=== PATIENT | female | born 1980 | race Caucasian/White ===

== ENCOUNTER 2017-11-12 08:25 | Inpatient (IN) | payer OTHER, MEDICAID ==
[2017-11-12] MEDS ORDERED: LIDOCAINE 1% (MPF) 30 ML INJ INJ (08:30)
[2017-11-12] MEDS ORDERED: CARBOPROST 250 MCG INJ IM ×2 (08:30→09:30)
[2017-11-12] MEDS ORDERED: BUTORPHANOL 2 MG INJ IV (08:30)
[2017-11-12] MEDS ORDERED: MISOPROSTOL 200 MCG TAB PR ×2 (08:30→09:30)
[2017-11-12] MEDS ORDERED: METHYLERGONOVINE 0.2 MG INJ IM ×2 (08:30→09:30)
[2017-11-12] MEDS ORDERED: OXYTOCIN 30 UNITS/LR 500 ML IV ×2 (08:30→09:30)
[2017-11-12] MEDS: OXYTOCIN 30 UNITS/LR 500 ML IV ×3 (08:38→13:18)
[2017-11-12] MEDS: LACTATED RINGER'S 1,000 ML IV (08:39)
[2017-11-12] MEDS: LACTATED RINGER'S 1,000 ML IV* (09:09)
[2017-11-12 09:13] LABS: ADD MAN DIFF? NO
[2017-11-12 09:18] LABS: WHITE BLOOD COUNT 16.9 10^3/ul (4.8-10.8)
[2017-11-12 09:18] LABS: BASOPHILS % 0.2 % (0.0-2.0); EOSINOPHILS # 0.1 10^3/ul (0.0-0.5); EOSINOPHILS % 0.6 % (0.0-7.0); HEMATOCRIT 37.6 % (37.0-47.0); HEMOGLOBIN 12.2 g/dl (12.0-16.0); LYMPHOCYTES # 2.2 10^3/ul (0.8-2.9); LYMPHOCYTES % 12.9 % (15.0-51.0); MEAN CORPUSCULAR HEMOGLOBIN 26.8 pg (29.0-33.0); MEAN CORPUSCULAR HGB CONC 32.4 g/dl (32.0-37.0); MEAN CORPUSCULAR VOLUME 82.5 fl (82.0-101.0); MEAN PLATELET VOLUME 11.5 fl (7.4-10.4); MONOCYTE # 0.5 10^3/ul (0.3-0.9); MONOCYTES % 3.1 % (0.0-11.0); NEUTROPHIL # 13.9 10^3/ul (1.6-7.5); NEUTROPHILS % 82.4 % (39.0-77.0); PLATELET COUNT 322 10^3/UL (140-415); RED BLOOD COUNT 4.56 10^6/ul (4.20-5.40); RED CELL DISTRIBUTION WIDTH 15.7 % (11.5-14.5)
[2017-11-12] MEDS ORDERED: LANOLIN 7 GM TUBE TOP (09:30)
[2017-11-12] MEDS ORDERED: DIBUCAINE 1% 30 GM OINT TOP (09:30)
[2017-11-12] MEDS ORDERED: BENZOCAINE 20% 56 ML SPRAY TOP (09:30)
[2017-11-12] MEDS ORDERED: WITCH HAZEL/GLYCERIN PAD PR (09:30)
[2017-11-12] MEDS: LABETALOL HCL 20MG INJ IV ×2 (09:34→10:30)
[2017-11-12 09:46] LABS: URIC ACID 5.5 mg/dl (3.1-7.9)
[2017-11-12 09:47] LABS: INR 0.86; PROTIME 11.8 Sec (11.9-14.9); PT RATIO 0.9
[2017-11-12 09:48] LABS: ADD UMIC YES; PARTIAL THROMBOPLASTIN TIME 29.2 Sec (25.0-35.0); UR ASCORBIC ACID NEGATIVE (NEGATIVE); UR BILIRUBIN (Dip) NEGATIVE (NEGATIVE); UR BLOOD (Dip) NEGATIVE (NEGATIVE); UR CLARITY CLEAR (CLEAR); UR COLOR AMBER (YELLOW); UR GLUCOSE (Dip) NEGATIVE (NEGATIVE); UR KETONES (Dip) TRACE mg/dL (NEGATIVE); UR LEUKOCYTE ESTERASE (Dip) NEGATIVE Leu/ul (NEGATIVE); UR NITRITE (Dip) NEGATIVE (NEGATIVE); UR RBC 0 /HPF (0-5); UR SPECIFIC GRAVITY (Dip) 1.019 (1.003-1.030); UR TOTAL PROTEIN (Dip) 1+ mg/dl (NEGATIVE); UR UROBILINOGEN (Dip) 1+ mg/dL (NEGATIVE); UR WBC 0 /HPF (0-5)
[2017-11-12 10:05] LABS: BARBITURATES Negative (NEGATIVE); CANNABINOIDS Negative (NEGATIVE)
[2017-11-12 10:15] LABS: BENZODIAZEPINES Negative (NEGATIVE); COCAINE Negative (NEGATIVE); OPIATES Negative (NEGATIVE)
[2017-11-12 10:19] LABS: AMPHETAMINE/METHAMPHETAMINE Positive (NEGATIVE)
[2017-11-12 11:46] LABS: ALANINE AMINOTRANSFERASE 30 IU/L (13-69); ALKALINE PHOSPHATASE 320 IU/L (42-121); ANION GAP 20 (8-16); ASPARTATE AMINO TRANSFERASE 40 IU/L (15-46); BLOOD UREA NITROGEN 7 mg/dl (7-20); CALCIUM 9.7 mg/dl (8.4-10.2); CARBON DIOXIDE 20 mmol/L (21-31); CHLORIDE 102 mmol/L (97-110); CREATININE 0.72 mg/dl (0.44-1.00); GLUCOSE 113 mg/dl (70-220); SODIUM 138 mmol/L (135-144)
[2017-11-12 11:47] LABS: ALBUMIN/GLOBULIN RATIO 0.83; BILIRUBIN,INDIRECT 0.3 mg/dl (0-1.1); BILIRUBIN,TOTAL 0.3 mg/dl (0.2-1.3); TOTAL PROTEIN 8.8 g/dl (6.1-8.1)
[2017-11-12] MEDS: AMPICILLIN 2 GM/NS (PMX) 100 ML IV (12:00)
[2017-11-12] MEDS: AMPICILLIN 1 GM/NS (PMX) 50 ML IV (12:30)
[2017-11-12 12:34] LABS: HEPATITIS B SURFACE ANTIGEN NEGATIVE (NEGATIVE)
[2017-11-12] MEDS: HYDROCODONE/APAP (5/325) TAB PO ×2 (13:15→19:57)
[2017-11-12 14:12] LABS: HIV 1&2 ANTIBODY NEGATIVE (NEGATIVE)
[2017-11-12 22:37] LABS: RAPID PLASMA REAGIN NONREACTIVE (NR)
[2017-11-13] MEDS: HYDROCODONE/APAP (5/325) TAB PO ×4 (06:50→23:13)
[2017-11-13 08:18] LABS: ADD MAN DIFF? NO
[2017-11-13 08:22] LABS: BASOPHILS % 0.3 % (0.0-2.0); EOSINOPHILS # 0.3 10^3/ul (0.0-0.5); EOSINOPHILS % 2.1 % (0.0-7.0); HEMATOCRIT 33.3 % (37.0-47.0); HEMOGLOBIN 10.5 g/dl (12.0-16.0); LYMPHOCYTES # 2.7 10^3/ul (0.8-2.9); LYMPHOCYTES % 20.8 % (15.0-51.0); MEAN CORPUSCULAR HEMOGLOBIN 26.3 pg (29.0-33.0); MEAN CORPUSCULAR HGB CONC 31.5 g/dl (32.0-37.0); MEAN CORPUSCULAR VOLUME 83.3 fl (82.0-101.0); MEAN PLATELET VOLUME 11.3 fl (7.4-10.4); MONOCYTE # 0.5 10^3/ul (0.3-0.9); NEUTROPHIL # 9.4 10^3/ul (1.6-7.5); NEUTROPHILS % 71.7 % (39.0-77.0); PLATELET COUNT 296 10^3/UL (140-415); RED CELL DISTRIBUTION WIDTH 15.7 % (11.5-14.5)
[2017-11-13 08:22] LABS: WHITE BLOOD COUNT 13.1 10^3/ul (4.8-10.8)
[2017-11-14] MEDS: HYDROCODONE/APAP (5/325) TAB PO ×3 (04:55→21:07)
[2017-11-14] MEDS: DIPHTH/TET/ACEL PERTUSS (ADULT) 0.5 ML VIAL IM* (09:00)
[2017-11-14] MEDS: VARICELLA VACCINE LIVE/PF 1,350 UNIT/0.5 ML ML SC* (09:00)
[2017-11-14] MEDS ORDERED: MEASLES,MUMPS,RUBELLA VACCINE INJ SC* (09:00)
[2017-11-14] MEDS: OXYCODONE/ACETAMINOPHEN (5/325) TAB PO (10:45)
[2017-11-14] MEDS: LABETALOL 100 MG TAB PO ×3 (14:11→21:00)
[2017-11-15] MEDS: HYDROCODONE/APAP (5/325) TAB PO ×2 (05:34→10:55)
[2017-11-15] MEDS: LABETALOL 100 MG TAB PO (08:38)
[2017-11-15 12:07] LABS: RUBELLA ANTIBODY - IGG 1.08 index; RUBELLA ANTIBODY - IGM <20.00 AU/mL
== END 2017-11-15 16:05 | disposition home or self-care (01) | DRG 775 ==
LOC: L-D 08:25 → PP1 12:12
PROC: 10E0XZZ Delivery of Products of Conception, External Approach (ICD-10-PCS; principal; 2017-11-12)
DX: O13.4 Gestational [pregnancy-induced] hypertension without significant proteinuria, complicating childbirth (principal); Z37.0 Single live birth; Z3A.37 37 weeks gestation of pregnancy
CPT/HCPCS: 80053; 80307; 81001; 84560; 85025; 85610; 85730; 86592; 86703; 86762; 86900; 86901; 87340; 88307; 90715; 90716; 99464

== ENCOUNTER 2018-12-04 17:01 | Emergency (ER) | payer OTHER | END 2018-12-04 18:50 | disposition home or self-care (01) | LOC: E/R 17:01 | DX: O10.011 Pre-existing essential hypertension complicating pregnancy, first trimester (principal); O13.1 Gestational [pregnancy-induced] hypertension without significant proteinuria, first trimester; Z3A.01 Less than 8 weeks gestation of pregnancy | CPT/HCPCS: 99283; Z7502 ==